=== PATIENT | female | born 1960 | race Caucasian/White ===

== ENCOUNTER → 2018-02-18 | Outpatient (CLI) | payer BC, SELFPAY ==
[~2018-02-18] MED LIST: DIATR MEGLU/DIATRIZOATE SODIUM 30 ML BOTTLE ONE
== END | disposition home or self-care (01) ==
LOC: RAH 08:49
PROVIDERS: ATTEND Surgery
DX: R13.10 Dysphagia, unspecified (principal); Z98.84 Bariatric surgery status
CPT/HCPCS: 74240; Q9963 ×2

== ENCOUNTER 2018-04-14 05:30 | Day surgery (SDC) | payer BC, SELFPAY ==
[2018-04-14] VITALS (10 sets, daily range): BP systolic 91–121; BP diastolic 56–77
[~2018-04-14] VITALS: Ht 172.7 cm; Wt 61.1 kg
[~2018-04-14 05:30] MED LIST changes: -DIATR MEGLU/DIATRIZOATE SODIUM 30 ML BOTTLE ONE; +INSLAN SQ
[2018-04-14] MEDS ORDERED: SODIUM CHLORIDE 0.9% 1000ML 1,000 ML IV ONE (05:57)
[2018-04-14] MEDS ORDERED: LIDOCAINE HCL-MPF 2% 5ML VIAL ONE (06:31)
[2018-04-14] MEDS ORDERED: PROPOFOL 10 MG/ML 20ML VIAL IV ONE ×2 (06:31→06:52)
[2018-04-14] MEDS ORDERED: CARAL PO (07:55)
== END 2018-04-14 08:00 | disposition home or self-care (01) ==
LOC: DAH 05:30 → ENDO 05:30
PROVIDERS: ATTEND Internal Medicine
DX: K57.30 Diverticulosis of large intestine without perforation or abscess without bleeding (principal); K64.0 First degree hemorrhoids; K44.9 Diaphragmatic hernia without obstruction or gangrene; K95.89 Other complications of other bariatric procedure; Z98.84 Bariatric surgery status; E11.9 Type 2 diabetes mellitus without complications; Z79.4 Long term (current) use of insulin; Z79.899 Other long term (current) drug therapy; Z98.890 Other specified postprocedural states; K59.04 Chronic idiopathic constipation
CPT/HCPCS: 43249; 45378; 82948; A4606; J2704 ×2; J3490; J7030

== ENCOUNTER 2018-04-28 05:30 | Day surgery (SDC) | payer BC ==
[~2018-04-28] VITALS: Ht 172.7 cm; Wt 62.6 kg
[2018-04-28] VITALS (7 sets, daily range): BP systolic 102–117; BP diastolic 59–76
[~2018-04-28 05:30] MED LIST changes: +CARAL PO
[2018-04-28] MEDS ORDERED: SODIUM CHLORIDE 0.9% 1000ML 1,000 ML IV ONE (05:49)
[2018-04-28] MEDS ORDERED: LINA145C PO (06:22)
[2018-04-28] MEDS ORDERED: MEPERIDINE-PF 50 MG/ML SYG ONE (07:39)
[2018-04-28] MEDS ORDERED: MIDAZOLAM HCL 1 MG/ML 2ML VIAL ONE (07:39)
[2018-04-28] MEDS ORDERED: PROPOFOL 10 MG/ML 20ML VIAL IV ONE ×2 (07:56)
== END 2018-04-28 08:50 | disposition home or self-care (01) ==
LOC: ENDO 05:30 → DAH 05:30 → ENDO 08:50
PROVIDERS: ATTEND Internal Medicine
DX: K95.89 Other complications of other bariatric procedure (principal); Z98.84 Bariatric surgery status; R13.10 Dysphagia, unspecified; R19.4 Change in bowel habit; E11.9 Type 2 diabetes mellitus without complications; Z98.890 Other specified postprocedural states; Z79.4 Long term (current) use of insulin; Z79.84 Long term (current) use of oral hypoglycemic drugs; Z79.899 Other long term (current) drug therapy; E66.9 Obesity, unspecified
CPT/HCPCS: 43249; 74018; A4606; C1726; J2175; J2250; J2704 ×2; J7030

== ENCOUNTER 2018-05-17 05:44 | Day surgery (SDC) | payer BC ==
[~2018-05-17] VITALS: Ht 172.7 cm; Wt 64.0 kg
[~2018-05-17 05:44] MED LIST changes: +LINA145C PO
[2018-05-17] MEDS ORDERED: SODIUM CHLORIDE 0.9% 1000ML 1,000 ML IV ONE (05:48)
[2018-05-17 06:35] VITALS: BP 102/65
[2018-05-17] MEDS ORDERED: PROPOFOL 10 MG/ML 20ML VIAL IV ONE ×2 (07:34→07:43)
[2018-05-17 07:46] VITALS: BP 96/61
[2018-05-17 07:50] VITALS: BP 126/75
[2018-05-17 07:55] VITALS: BP 128/71
[2018-05-17 08:05] VITALS: BP 114/69
== END 2018-05-17 08:40 | disposition home or self-care (01) ==
LOC: DAH 05:44 → ENDO 05:44
PROVIDERS: ATTEND Internal Medicine
DX: K95.89 Other complications of other bariatric procedure (principal); R13.10 Dysphagia, unspecified; E11.9 Type 2 diabetes mellitus without complications; Z79.899 Other long term (current) drug therapy; Z98.84 Bariatric surgery status; K44.9 Diaphragmatic hernia without obstruction or gangrene; K31.89 Other diseases of stomach and duodenum; E66.9 Obesity, unspecified
CPT/HCPCS: 43249; 82948 ×2; A4606; C1726; J2704 ×2; J7030

== ENCOUNTER → 2018-05-25 | Outpatient (CLI) | payer BC ==
[2018-05-25 15:47] LABS: CREATININE 0.7 mg/dL (0.5-1.5)
== END | disposition home or self-care (01) ==
LOC: LAB 15:08
PROVIDERS: ATTEND Internal Medicine
DX: K44.9 Diaphragmatic hernia without obstruction or gangrene (principal); K31.89 Other diseases of stomach and duodenum; R10.30 Lower abdominal pain, unspecified
CPT/HCPCS: 36415; 82565; 84520

== ENCOUNTER → 2018-05-27 | Outpatient (CLI) | payer BC ==
[~2018-05-27] MED LIST changes: +IOHEXOL-350 75 ML VIAL IV ONE
== END | disposition home or self-care (01) ==
LOC: RAH 07:39
PROVIDERS: ATTEND Internal Medicine
DX: N20.0 Calculus of kidney (principal); K31.89 Other diseases of stomach and duodenum; K44.9 Diaphragmatic hernia without obstruction or gangrene; K43.9 Ventral hernia without obstruction or gangrene; Z98.84 Bariatric surgery status; Z90.49 Acquired absence of other specified parts of digestive tract
CPT/HCPCS: 74178; Q9967

== ENCOUNTER 2018-07-15 06:21 | Day surgery (SDC) | payer BC ==
[~2018-07-15] VITALS: Ht 172.7 cm; Wt 65.8 kg
[~2018-07-15 06:21] MED LIST changes: -IOHEXOL-350 75 ML VIAL IV ONE; +SODIUM CHLORIDE 0.9% 1000ML 1,000 ML IV ONE
[2018-07-15 07:07] VITALS: BP 108/77
[2018-07-15] MEDS ORDERED: PROPOFOL 10 MG/ML 20ML VIAL IV ONE ×2 (08:10→08:25)
[2018-07-15] MEDS ORDERED: ESMOLOL HCL 10 MG/ML 10 ML VIAL ONE (08:20)
[2018-07-15 08:40] VITALS: BP 95/61
[2018-07-15 08:45] VITALS: BP 91/58
[2018-07-15 08:57] VITALS: BP 111/73
[2018-07-15 09:03] VITALS: BP 119/73
== END 2018-07-15 09:09 | disposition home or self-care (01) ==
LOC: DAH 06:21 → ENDO 06:21
PROVIDERS: ATTEND Internal Medicine
DX: K95.89 Other complications of other bariatric procedure (principal); K92.89 Other specified diseases of the digestive system; Z98.0 Intestinal bypass and anastomosis status; Z79.899 Other long term (current) drug therapy; E11.9 Type 2 diabetes mellitus without complications; Z79.4 Long term (current) use of insulin; Z98.890 Other specified postprocedural states; K31.89 Other diseases of stomach and duodenum
CPT/HCPCS: 43245; 82948 ×2; C1725; J2704 ×2; J3490; J7030; 43249

== ENCOUNTER 2018-08-09 08:28 | Day surgery (SDC) | payer BC ==
[~2018-08-09] VITALS: Ht 172.7 cm; Wt 65.8 kg
[2018-08-09] VITALS (8 sets, daily range): BP systolic 93–111; BP diastolic 57–73
[~2018-08-09 08:28] MED LIST changes: +BOTULINUM TOXIN TYPE A 100 UNITS/VIAL INJ SCH
[2018-08-09] MEDS ORDERED: FAMO40TA7 PO (10:48)
[2018-08-09] MEDS ORDERED: PROPOFOL 10 MG/ML 20ML VIAL IV ONE ×2 (12:18→12:56)
[2018-08-09] MEDS ORDERED: TRIAMCINOLONE ACETONIDE 40 MG/ML 1ML VIAL INJ SCH (12:30)
[2018-08-09] MEDS ORDERED: ESMOLOL HCL 10 MG/ML 10 ML VIAL ONE (12:56)
== END 2018-08-09 13:49 | disposition home or self-care (01) ==
LOC: ENDO 08:28 → DAH 08:28 → ENDO 13:49
PROVIDERS: ATTEND Internal Medicine
DX: K31.89 Other diseases of stomach and duodenum (principal); K44.9 Diaphragmatic hernia without obstruction or gangrene; E11.9 Type 2 diabetes mellitus without complications; K95.89 Other complications of other bariatric procedure
CPT/HCPCS: 43245; 82948 ×2; A4606; C1726; J2704 ×2; J3301; J3490; J7030; 43249; J0585

== ENCOUNTER 2023-05-24 14:40 | Emergency (ER) | payer BC, OTHER ==
[~2023-05-24] VITALS: Ht 172.7 cm; Wt 84.4 kg
[~2023-05-24 14:40] MED LIST changes: -BOTULINUM TOXIN TYPE A 100 UNITS/VIAL INJ SCH; +FAMO40TA7 PO; -SODIUM CHLORIDE 0.9% 1000ML 1,000 ML IV ONE
[2023-05-24 16:02] VITALS: BP 148/80; PULSE 71; RESP 18; O2SAT 99
[2023-05-24 16:32] LABS: BASOPHILS # (AUTO) 0.08 K/uL (0.00-0.20); BASOPHILS % (AUTO) 0.9 % (0.0-5.0); EOSINOPHILS # (AUTO) 0.14 K/uL (0.00-0.70); EOSINOPHILS % (AUTO) 1.6 % (0.0-8.0); HEMATOCRIT 34.3 % (36-48); IMMATURE GRANULOCYTE ABSOLUTE 0.02 K/uL (0-1); LYMPHOCYTES # (AUTO) 3.8 K/uL (1.0-4.8); LYMPHOCYTES % (AUTO) 42.4 % (21.0-51.0); MEAN CORPUSCULAR HEMOGLOBIN 24.1 pg (27.0-33.0); MEAN CORPUSCULAR HGB CONC 30.6 g/dL (32.0-36.0); MEAN CORPUSCULAR VOLUME 78.7 fL (79-99); MONOCYTES # (AUTO) 0.6 K/uL (0.1-1.0); MONOCYTES % (AUTO) 6.5 % (3.0-13.0); NEUTROPHILS # (AUTO) 4.3 K/uL (1.8-7.7); NEUTROPHILS % (AUTO) 48.4 % (40.0-77.0); PLATELET COUNT (AUTO) 362 K/uL (130-400); RED BLOOD CELL COUNT(AUTO) 4.36 MIL/uL (4.00-5.50); RED CELL DISTRIBUTION WIDTH 14.7 % (11.0-15.5); WHITE BLOOD COUNT (AUTO) 8.9 K/uL (4.8-10.8)
[2023-05-24 16:41] LABS: CREATININE 0.6 mg/dL (0.5-1.0); POTASSIUM 4.3 mmol/L (3.5-5.1)
[2023-05-24 16:45] LABS: ALBUMIN 3.4 g/dL (3.5-5.0); BILIRUBIN,TOTAL 0.5 mg/dL (0.2-1.0); TOTAL PROTEIN, SERUM 6.9 g/dL (6.0-8.3)
[2023-05-24] MEDS: MECLIZINE HCL 25 MG TABLET PO ONE (17:07)
[2023-05-24] MEDS: LACTATED RINGERS 1000ML 1,000 ML IV ONE (17:07)
[2023-05-24 17:20] LABS: APPEARANCE,URINE CLEAR (CLEAR); BILIRUBIN,URINE NEGATIVE (NEGATIVE); COLOR,URINE LIGHT-YELLOW (YELLOW); GLUCOSE, URINE (UA) >=1000 mg/dL (NEGATIVE); KETONES,URINE NEGATIVE (NEGATIVE); LEUKOCYTE ESTERASE ,URINE NEGATIVE Leu/uL (NEGATIVE); NITRATE,URINE NEGATIVE (NEGATIVE); OCCULT BLOOD,URINE SMALL (NEGATIVE); PROTEIN,URINE NEGATIVE (NEGATIVE); UROBILINOGEN,URINE 0.2 mg/dL (0.2-1.0)
[2023-05-24 17:25] LABS: ADD UA MICROSCOPIC YES
[2023-05-24 18:03] LABS: MUCUS,URINE RARE LPF (None Seen); RBC,URINE 51-100 /HPF (0-1); SQUAMOUS EPITHELIAL CELL,UR RARE /HPF (0-2)
[2023-05-24] MEDS ORDERED: MECL-160 PO (19:16)
== END 2023-05-24 19:31 | disposition home or self-care (01) ==
LOC: EDH 14:40
DX: R42 Dizziness and giddiness (principal); E11.9 Type 2 diabetes mellitus without complications; Z79.4 Long term (current) use of insulin; Z90.49 Acquired absence of other specified parts of digestive tract
CPT/HCPCS: 36415; 70450; 80053; 81001; 84484; 85025; 87088; 93005

== ENCOUNTER → 2023-08-17 | Outpatient (CLI) | payer OTHER ==
[~2023-08-17] MED LIST changes: -CARAL PO; +EMPA10TA PO; -FAMO40TA7 PO; -INSLAN SQ; +LIDOCAINE HCL 4% LTA SOL 4 ML VIAL TP ONE; -LINA145C PO; +MELO-108 PO; +SERT-439 PO
== END | disposition home or self-care (01) ==
LOC: WHH 10:32
PROVIDERS: ATTEND Nurse Practitioner Family
DX: T81.89XA Other complications of procedures, not elsewhere classified, initial encounter (principal); E11.649 Type 2 diabetes mellitus with hypoglycemia without coma; L02.31 Cutaneous abscess of buttock; K21.9 Gastro-esophageal reflux disease without esophagitis; Z79.82 Long term (current) use of aspirin; Z79.4 Long term (current) use of insulin; Z79.899 Other long term (current) drug therapy; Y83.8 Other surgical procedures as the cause of abnormal reaction of the patient, or of later complication, without mention of misadventure at the time of the procedure; Y92.89 Other specified places as the place of occurrence of the external cause
CPT/HCPCS: G0463; A6212; A6021; A6209; A4450

== ENCOUNTER → 2023-08-24 | Outpatient (CLI) | payer OTHER ==
[~2023-08-24] MED LIST changes: -LIDOCAINE HCL 4% LTA SOL 4 ML VIAL TP ONE
== END | disposition home or self-care (01) ==
LOC: WHH 08:57
PROVIDERS: ATTEND Nurse Practitioner Family
DX: T81.89XD Other complications of procedures, not elsewhere classified, subsequent encounter (principal); S31.819D Unspecified open wound of right buttock, subsequent encounter; E11.649 Type 2 diabetes mellitus with hypoglycemia without coma; L02.31 Cutaneous abscess of buttock; K21.9 Gastro-esophageal reflux disease without esophagitis; Z79.82 Long term (current) use of aspirin; Z79.4 Long term (current) use of insulin; Z79.899 Other long term (current) drug therapy; Y83.8 Other surgical procedures as the cause of abnormal reaction of the patient, or of later complication, without mention of misadventure at the time of the procedure; X58.XXXD Exposure to other specified factors, subsequent encounter
CPT/HCPCS: 99214; A6197; A6022

== ENCOUNTER → 2023-08-31 | Outpatient (CLI) | payer OTHER ==
[~2023-08-31] MED LIST changes: +LIDOCAINE HCL 4% LTA SOL 4 ML VIAL TP ONE
== END | disposition home or self-care (01) ==
LOC: WHH 08:56
PROVIDERS: ATTEND Nurse Practitioner Family
DX: T81.89XD Other complications of procedures, not elsewhere classified, subsequent encounter (principal); S31.819D Unspecified open wound of right buttock, subsequent encounter; E11.649 Type 2 diabetes mellitus with hypoglycemia without coma; L02.31 Cutaneous abscess of buttock; K21.9 Gastro-esophageal reflux disease without esophagitis; Z79.82 Long term (current) use of aspirin; Z79.4 Long term (current) use of insulin; Z79.899 Other long term (current) drug therapy; X58.XXXD Exposure to other specified factors, subsequent encounter; Y83.8 Other surgical procedures as the cause of abnormal reaction of the patient, or of later complication, without mention of misadventure at the time of the procedure
CPT/HCPCS: 99214; A6248; A6209

== ENCOUNTER → 2023-09-07 | Outpatient (CLI) | payer OTHER | END | disposition home or self-care (01) | LOC: WHH 08:57 | PROVIDERS: ATTEND Nurse Practitioner Family | DX: T81.89XD Other complications of procedures, not elsewhere classified, subsequent encounter (principal); S31.819D Unspecified open wound of right buttock, subsequent encounter; E11.649 Type 2 diabetes mellitus with hypoglycemia without coma; L02.31 Cutaneous abscess of buttock; K21.9 Gastro-esophageal reflux disease without esophagitis; Z79.82 Long term (current) use of aspirin; Z79.899 Other long term (current) drug therapy; X58.XXXD Exposure to other specified factors, subsequent encounter; Y83.8 Other surgical procedures as the cause of abnormal reaction of the patient, or of later complication, without mention of misadventure at the time of the procedure | CPT/HCPCS: 17250; 87086 ×3; 87186 ×3; 87070; A6209 ==

== ENCOUNTER → 2023-09-14 | Outpatient (CLI) | payer OTHER | END | disposition home or self-care (01) | LOC: WHH 09:18 | PROVIDERS: ATTEND Family Medicine | DX: T81.89XD Other complications of procedures, not elsewhere classified, subsequent encounter (principal); S31.819D Unspecified open wound of right buttock, subsequent encounter; E11.649 Type 2 diabetes mellitus with hypoglycemia without coma; L02.31 Cutaneous abscess of buttock; K21.9 Gastro-esophageal reflux disease without esophagitis; Z79.82 Long term (current) use of aspirin; Z79.899 Other long term (current) drug therapy; X58.XXXD Exposure to other specified factors, subsequent encounter; Y83.8 Other surgical procedures as the cause of abnormal reaction of the patient, or of later complication, without mention of misadventure at the time of the procedure | CPT/HCPCS: 17250; A6209 ==

== ENCOUNTER → 2023-09-21 | Outpatient (CLI) | payer OTHER | END | disposition home or self-care (01) | LOC: WHH 09:03 | PROVIDERS: ATTEND Family Medicine | DX: T81.89XD Other complications of procedures, not elsewhere classified, subsequent encounter (principal); S31.819D Unspecified open wound of right buttock, subsequent encounter; E11.622 Type 2 diabetes mellitus with other skin ulcer; L98.412 Non-pressure chronic ulcer of buttock with fat layer exposed; E11.649 Type 2 diabetes mellitus with hypoglycemia without coma; K21.9 Gastro-esophageal reflux disease without esophagitis; Z79.82 Long term (current) use of aspirin; Z79.899 Other long term (current) drug therapy; X58.XXXD Exposure to other specified factors, subsequent encounter; Y83.8 Other surgical procedures as the cause of abnormal reaction of the patient, or of later complication, without mention of misadventure at the time of the procedure | CPT/HCPCS: 99214; A6209 ==

== ENCOUNTER → 2023-10-05 | Outpatient (CLI) | payer OTHER | END | disposition home or self-care (01) | LOC: WHH 09:18 | PROVIDERS: ATTEND Family Medicine | DX: T81.89XD Other complications of procedures, not elsewhere classified, subsequent encounter (principal); S31.819D Unspecified open wound of right buttock, subsequent encounter; E11.622 Type 2 diabetes mellitus with other skin ulcer; L98.412 Non-pressure chronic ulcer of buttock with fat layer exposed; E11.649 Type 2 diabetes mellitus with hypoglycemia without coma; K21.9 Gastro-esophageal reflux disease without esophagitis; Z79.82 Long term (current) use of aspirin; Z79.899 Other long term (current) drug therapy; X58.XXXD Exposure to other specified factors, subsequent encounter; Y83.8 Other surgical procedures as the cause of abnormal reaction of the patient, or of later complication, without mention of misadventure at the time of the procedure | CPT/HCPCS: 99214; A6209 ==

== ENCOUNTER 2023-11-12 19:46 | Observation (INO) | payer OTHER ==
[~2023-11-12] VITALS: Ht 175.3 cm; Wt 86.2 kg
[~2023-11-12 19:46] MED LIST changes: -LIDOCAINE HCL 4% LTA SOL 4 ML VIAL TP ONE
[2023-11-12 20:24] LABS: BASOPHILS # (AUTO) 0.13 K/uL (0.00-0.20); BASOPHILS % (AUTO) 1.5 % (0.0-5.0); EOSINOPHILS # (AUTO) 0.23 K/uL (0.00-0.70); EOSINOPHILS % (AUTO) 2.7 % (0.0-8.0); HEMATOCRIT 25.6 % (36-48); IMMATURE GRANULOCYTE ABSOLUTE 0.02 K/uL (0-1); LYMPHOCYTES # (AUTO) 3.1 K/uL (1.0-4.8); LYMPHOCYTES % (AUTO) 36.1 % (21.0-51.0); MEAN CORPUSCULAR HEMOGLOBIN 20.3 pg (27.0-33.0); MEAN CORPUSCULAR HGB CONC 28.5 g/dL (32.0-36.0); MEAN CORPUSCULAR VOLUME 71.1 fL (79-99); MONOCYTES # (AUTO) 0.7 K/uL (0.1-1.0); MONOCYTES % (AUTO) 8.4 % (3.0-13.0); NEUTROPHILS # (AUTO) 4.4 K/uL (1.8-7.7); NEUTROPHILS % (AUTO) 51.1 % (40.0-77.0); PLATELET COUNT (AUTO) 450 K/uL (130-400); RED CELL DISTRIBUTION WIDTH 18.7 % (11.0-15.5); WHITE BLOOD COUNT (AUTO) 8.6 K/uL (4.8-10.8)
[2023-11-12 20:28] LABS: CREATININE 0.9 mg/dL (0.5-1.0); POTASSIUM 3.4 mmol/L (3.5-5.1)
[2023-11-12 20:36] LABS: INR 0.95 (0.85-1.15); PROTHROMBIN TIME 10.3 SEC (9.6-11.6)
[2023-11-12 20:39] LABS: MAGNESIUM 1.7 mg/dL (1.80-2.40)
[2023-11-12] MEDS: 0.9%NACL 1000ML 1,000 ML IV ONE (21:01)
[2023-11-12] MEDS: mecliZINE HCL 25 MG TABLET PO ONE (21:01)
[2023-11-12 21:29] LABS: APPEARANCE,URINE CLEAR (CLEAR); BILIRUBIN,URINE NEGATIVE (NEGATIVE); COLOR,URINE COLORLESS (YELLOW); GLUCOSE, URINE (UA) NEGATIVE (NEGATIVE); KETONES,URINE NEGATIVE (NEGATIVE); LEUKOCYTE ESTERASE ,URINE NEGATIVE Leu/uL (NEGATIVE); NITRATE,URINE NEGATIVE (NEGATIVE); OCCULT BLOOD,URINE NEGATIVE (NEGATIVE); PH,URINE 5.5 (5.0-8.0); PROTEIN,URINE NEGATIVE (NEGATIVE); UROBILINOGEN,URINE 0.2 mg/dL (0.2-1.0)
[2023-11-12 21:39] LABS: ADD UA MICROSCOPIC NO
[2023-11-12 21:56] LABS: ALBUMIN 3.1 g/dL (3.5-5.0); BILIRUBIN,DIRECT 0.1 mg/dL (0.0-0.3); BILIRUBIN,TOTAL 0.4 mg/dL (0.2-1.0); TOTAL PROTEIN, SERUM 6.7 g/dL (6.0-8.3)
[2023-11-12] MEDS: MAGNESIUM OXIDE 400 MG TABLET PO ONE (22:35)
[2023-11-12] MEDS: PoTASSium BIcarbonate/CIT AC 25 MEQ TABLET.EFF PO ONE (22:35)
[2023-11-12] MEDS ORDERED: PoTASSium chloRIDE 20MEQ ER 20 MEQ ERTAB PO PRN (23:30)
[2023-11-12] MEDS ORDERED: mecliZINE HCL 25 MG TABLET PO PRN (23:30)
[2023-11-12] MEDS ORDERED: ondanSETRON 4MG INJ IV PRN (23:30)
[2023-11-12] MEDS ORDERED: PoTASSium chloRIDE 20MEQ/100ML 100 ML IV PRN (23:30)
[2023-11-12] MEDS ORDERED: PoTASSium chl 10% ELIXIR 20MEQ 20 MEQ/15 ML UDCUP PO PRN (23:30)
[2023-11-12] MEDS ORDERED: acetaMINOPHEN 325 MG TAB PO PRN ×2 (23:30)
[2023-11-12] MEDS: LACTATED RINGERS 1000ML 1,000 ML IV SCH (23:49)
[2023-11-13 02:20] VITALS: BP 123/72; PULSE 77; RESP 20; TEMP 97.9
[2023-11-13 05:58] LABS: BASOPHILS # (AUTO) 0.15 K/uL (0.00-0.20); BASOPHILS % (AUTO) 1.6 % (0.0-5.0); EOSINOPHILS # (AUTO) 0.14 K/uL (0.00-0.70); EOSINOPHILS % (AUTO) 1.5 % (0.0-8.0); HEMATOCRIT 27.8 % (36-48); IMMATURE GRANULOCYTE ABSOLUTE 0.02 K/uL (0-1); LYMPHOCYTES % (AUTO) 31.1 % (21.0-51.0); MEAN CORPUSCULAR HEMOGLOBIN 20.5 pg (27.0-33.0); MEAN CORPUSCULAR HGB CONC 28.4 g/dL (32.0-36.0); MEAN CORPUSCULAR VOLUME 72.2 fL (79-99); MONOCYTES # (AUTO) 0.7 K/uL (0.1-1.0); MONOCYTES % (AUTO) 6.8 % (3.0-13.0); NEUTROPHILS # (AUTO) 5.6 K/uL (1.8-7.7); NEUTROPHILS % (AUTO) 58.8 % (40.0-77.0); PLATELET COUNT (AUTO) 413 K/uL (130-400); RED BLOOD CELL COUNT(AUTO) 3.85 MIL/uL (4.00-5.50); RED CELL DISTRIBUTION WIDTH 18.9 % (11.0-15.5); WHITE BLOOD COUNT (AUTO) 9.6 K/uL (4.8-10.8)
[2023-11-13 06:11] LABS: % IRON SATURATION 3.3 % (22-44); HEMOGLOBIN A1C 9.3 % (4.0-6.0)
[2023-11-13 06:27] LABS: BILIRUBIN,TOTAL 0.6 mg/dL (0.2-1.0); CREATININE 0.8 mg/dL (0.5-1.0); MAGNESIUM 1.8 mg/dL (1.80-2.40); THYROID STIMULATING HORMONE 5.78 uIU/mL (0.36-3.74); TOTAL PROTEIN, SERUM 6.6 g/dL (6.0-8.3)
[2023-11-13 08:00] VITALS: BP_SYST 144; BP_SYST 152; BP_SYST 156; BP_DIAS 73; BP_DIAS 76; BP_DIAS 82; PULSE 67; PULSE 70; PULSE 72; RESP 18; RESP 20; TEMP 98.4
[2023-11-13] MEDS: FAMOTIDINE 20MG TAB PO SCH (08:16)
[2023-11-13 12:00] VITALS: BP 148/67; PULSE 66; RESP 20; TEMP 97.6
[2023-11-13] MEDS ORDERED: OMEP20CA12 PO (14:39)
[2023-11-13] MEDS ORDERED: INSU3INS3 SQ (14:39)
[2023-11-13] MEDS ORDERED: SERT-439 PO (14:39)
[2023-11-13] MEDS: CYANOCOBALAMIN (VITAMIN B-12) 1,000 MCG TABLET PO SCH (15:35)
[2023-11-13] MEDS: FOLic ACID 1 MG TABLET PO SCH (15:36)
[2023-11-13] MEDS: CYANOCOBALAMIN (VITAMIN B-12) 1,000 MCG TABLET PO ONE (15:39)
[2023-11-13] MEDS: FOLic ACID 1 MG TABLET PO ONE (15:39)
[2023-11-13 16:00] VITALS: BP 146/72; PULSE 63; RESP 18; TEMP 98.3
[2023-11-13 20:00] VITALS: BP 139/51; PULSE 63; RESP 18; TEMP 98.6
[2023-11-14] VITALS: BP 128/67; PULSE 65; RESP 18; TEMP 98.3
[2023-11-14 04:00] VITALS: BP 133/65; PULSE 60; RESP 18; TEMP 98.1
[2023-11-14 04:03] VITALS: BP 128/66; PULSE 63; RESP 18; TEMP 98.1
[2023-11-14 04:06] VITALS: BP 120/61; PULSE 68; RESP 18; TEMP 98.1
[2023-11-14 05:08] LABS: BASOPHILS # (AUTO) 0.12 K/uL (0.00-0.20); BASOPHILS % (AUTO) 1.4 % (0.0-5.0); EOSINOPHILS # (AUTO) 0.18 K/uL (0.00-0.70); EOSINOPHILS % (AUTO) 2.1 % (0.0-8.0); HEMATOCRIT 30.6 % (36-48); IMMATURE GRANULOCYTE ABSOLUTE 0.03 K/uL (0-1); LYMPHOCYTES # (AUTO) 2.7 K/uL (1.0-4.8); LYMPHOCYTES % (AUTO) 31.9 % (21.0-51.0); MEAN CORPUSCULAR HEMOGLOBIN 21.1 pg (27.0-33.0); MEAN CORPUSCULAR HGB CONC 29.1 g/dL (32.0-36.0); MEAN CORPUSCULAR VOLUME 72.5 fL (79-99); MONOCYTES # (AUTO) 0.6 K/uL (0.1-1.0); MONOCYTES % (AUTO) 7.5 % (3.0-13.0); NEUTROPHILS # (AUTO) 4.8 K/uL (1.8-7.7); NEUTROPHILS % (AUTO) 56.7 % (40.0-77.0); PLATELET COUNT (AUTO) 388 K/uL (130-400); RED BLOOD CELL COUNT(AUTO) 4.22 MIL/uL (4.00-5.50); RED CELL DISTRIBUTION WIDTH 18.9 % (11.0-15.5); WHITE BLOOD COUNT (AUTO) 8.4 K/uL (4.8-10.8)
[2023-11-14 05:22] LABS: BILIRUBIN,TOTAL 1.6 mg/dL (0.2-1.0); CREATININE 0.9 mg/dL (0.5-1.0); MAGNESIUM 1.7 mg/dL (1.80-2.40); POTASSIUM 4.1 mmol/L (3.5-5.1); TOTAL PROTEIN, SERUM 6.4 g/dL (6.0-8.3)
[2023-11-14] MEDS ORDERED: CYAN-52 PO (07:16)
[2023-11-14] MEDS ORDERED: FOLI1 PO (07:16)
[2023-11-14 08:00] VITALS: BP 138/69; PULSE 64; RESP 16; TEMP 98.5; O2SAT 97
[2023-11-14] MEDS: MAGNESIUM 2GM PREMIX 50ML 50 ML IV PRN (08:57)
[2023-11-14] MEDS ORDERED: FERR-72 PO (09:46)
[2023-11-14] MEDS ORDERED: DOCU-116 PO (09:46)
== END 2023-11-14 11:25 | disposition home or self-care (01) ==
LOC: EDH 19:46 → EDHIP 23:02 → 4CH 11-13 02:20
PROVIDERS: ADMIT Internal Medicine; ATTEND Internal Medicine
DX: R55 Syncope and collapse (principal); R00.1 Bradycardia, unspecified; E87.6 Hypokalemia; E83.42 Hypomagnesemia; D75.839 Thrombocytosis, unspecified; I95.9 Hypotension, unspecified; E11.9 Type 2 diabetes mellitus without complications; D50.9 Iron deficiency anemia, unspecified; N28.89 Other specified disorders of kidney and ureter; E86.0 Dehydration; R60.0 Localized edema; M72.6 Necrotizing fasciitis; E66.01 Morbid (severe) obesity due to excess calories; E03.9 Hypothyroidism, unspecified; M79.7 Fibromyalgia; Z79.4 Long term (current) use of insulin; Z90.49 Acquired absence of other specified parts of digestive tract; Z98.84 Bariatric surgery status; Z79.899 Other long term (current) drug therapy; Z68.28 Body mass index [BMI] 28.0-28.9, adult
CPT/HCPCS: 96361; 99285; 82550; 80076; 83735 ×3; 84484 ×2; 80048; 85025 ×3; 85610; 85730; 86850; 86900; 86901; 86923; 82270; 81003; 36415 ×3; 71045; 70450; 93880; 93005; 36430; 83036; 84443; 83540; 83550; 80053 ×2; 82948 ×4; 82607; 93306; 93356; 96365; G0378 ×31; J7030; P9016; J3475